=== PATIENT | female | born 1965 | race Caucasian/White ===

== ENCOUNTER 2016-11-28 13:59 | Inpatient (IN) | payer MEDICARE, SELFPAY ==
[2016-11-26 19:14] LABS: ASCORBIC ACID (UR NOT ORDER) NEG (NEG); BILIRUBIN, URINE NEGATIVE (NEG); KETONE, URINE NEGATIVE (NEG)
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
[~2016-11-28 13:59] MED LIST: ACET500CAP PO; ALEVE220 MG PO; CAT1 PO; CEFADROXIL1 GM PO; CEFT5 PO; CENTRUM TAB1 TAB PO; CIP5 PO; EPITOL200 MG PO; FLEX PO; GLUCPH PO; LEVAQUIN750 MG PO; MACROBID PO; MULTIVITAMI1 PO; NORV5 PO; PCET PO; PERCOCET1 TA4 PO; RESTORIL30 MG PO; SANTYL250 MG/GM TOP; SEPTRA DS1 TAB PO; TEG200 PO; ZANAFLEX2 MG PO; ZINC PO; [UNRECOGNIZED DRUG - OTHER] PO
[2016-11-28 18:09] LABS: BASOPHILS 0.2 %; BASOPHILS ABSOLUTE 0.02 10/3/uL (0.0-0.16); EOSINOPHILS 0.8 %; HEMATOCRIT 23.4 % (36.0-48.0); IMMATURE GRANULOCYTES 0.3 %; IMMATURE GRANULOCYTES ABSOLUTE 0.04 10/3/uL (0.0-0.11); LYMPHOCYTES 23.9 %; LYMPHOCYTES ABSOLUTE 2.98 10/3/uL (0.67-4.30); MEAN CORPUS HGB CONC 29.5 g/dL (32.0-36.0); MEAN CORPUSCULAR HEMOGLOB 22.3 pg (26.0-34.0); MEAN CORPUSCULAR VOLUME 75.5 fL (80-100); MEAN PLATELET VOLUME 9.1 fL (9.2-13.0); MONOCYTES ABSOLUTE 1.12 10/3/uL (0.21-1.20); NEUTROPHILS 65.8 %; NEUTROPHILS ABSOLUTE 8.21 10/3/uL (2.02-8.40); NUCLEATED RED BLOOD CELLS 0.1 /100WBC (0-0); RBC DISTRIBUTION WIDTH 20.3 % (12.0-16.0); WHITE BLOOD CELLS 12.5 10/3/uL (4.5-10.5)
[2016-11-28 18:10] LABS: A/G RATIO 0.2 (0.7-1.9); ALBUMIN 1.5 G/DL (3.5-5.0); BUN (BLOOD UREA NITROGEN) 7 MG/DL (6-23); CALCIUM, SERUM 8.3 MG/DL (8.5-10.4); CHLORIDE, SERUM 99 MMOL/L (96-112); CO2 (CARBON DIOXIDE) 29 MMOL/L (24-34); GFR AFRICAN AMERICAN 122 ML/MIN (>=60); GFR NON AFRICAN AMERICAN 106 ML/MIN (>=60); GLOBULIN 6.8 G/DL (2.5-4.1); POTASSIUM, SERUM 3.7 MMOL/L (3.5-5.3); SGOT(AST) 12 U/L (5-40); SGPT(ALT) 10 U/L (5-65); SODIUM, SERUM 137 MMOL/L (135-148); TOTAL BILIRUBIN 0.4 MG/DL (0-1.2); TOTAL PROTEIN 8.3 G/DL (6.0-8.5)
[2016-11-28 18:11] LABS: ALKALINE PHOSPHATASE 154 U/L (45-117); GLUCOSE, SERUM 102 MG/DL (60-99); HEMOGLOBIN 6.9 g/dL (12.0-16.0); PLATELET COUNT 857 10/3/uL (150-400)
[2016-11-28 18:13] LABS: MANUAL DIFF NO %
[2016-11-28 18:29] LABS: PREALBUMIN 6.2 MG/DL (17.0-43.0)
[2016-11-29 06:59] LABS: HEMATOCRIT 31.2 % (36.0-48.0); HEMOGLOBIN 9.8 g/dL (12.0-16.0)
[2016-11-29 17:45] LABS: ASCORBIC ACID (UR NOT ORDER) NEG (NEG); BILIRUBIN, URINE NEGATIVE (NEG); KETONE, URINE NEGATIVE (NEG); LEUKOCYTE ESTERASE(NOT OR LARGE (NEG); WBC (NOT ORDERED) (RFLEX) 60 (0-5)
[2016-11-30 03:50] LABS: BASOPHILS 0.1 %; BASOPHILS ABSOLUTE 0.01 10/3/uL (0.0-0.16); EOSINOPHILS 0.9 %; EOSINOPHILS ABSOLUTE 0.12 10/3/uL (0.0-0.53); HEMOGLOBIN 8.7 g/dL (12.0-16.0); IMMATURE GRANULOCYTES 0.2 %; IMMATURE GRANULOCYTES ABSOLUTE 0.02 10/3/uL (0.0-0.11); LYMPHOCYTES 37.2 %; LYMPHOCYTES ABSOLUTE 4.79 10/3/uL (0.67-4.30); MONOCYTES 8.1 %; MONOCYTES ABSOLUTE 1.04 10/3/uL (0.21-1.20); NEUTROPHILS 53.5 %; NEUTROPHILS ABSOLUTE 6.89 10/3/uL (2.02-8.40); RED CELL COUNT 3.52 10/6/uL (4.0-5.6); WHITE BLOOD CELLS 12.9 10/3/uL (4.5-10.5)
[2016-11-30 03:55] LABS: BUN (BLOOD UREA NITROGEN) 9 MG/DL (6-23); CALCIUM, SERUM 8.4 MG/DL (8.5-10.4); CHLORIDE, SERUM 100 MMOL/L (96-112); CO2 (CARBON DIOXIDE) 30 MMOL/L (24-34); CREATININE 0.76 MG/DL (0.55-1.02); GFR AFRICAN AMERICAN 105 ML/MIN (>=60); GFR NON AFRICAN AMERICAN 91 ML/MIN (>=60); GLUCOSE, SERUM 95 MG/DL (60-99); POTASSIUM, SERUM 3.8 MMOL/L (3.5-5.3); SODIUM, SERUM 138 MMOL/L (135-148)
[2016-11-30 04:04] LABS: HEMATOCRIT 27.4 % (36.0-48.0); MANUAL DIFF NO %; MEAN CORPUS HGB CONC 31.8 g/dL (32.0-36.0); MEAN CORPUSCULAR HEMOGLOB 24.7 pg (26.0-34.0); MEAN CORPUSCULAR VOLUME 77.8 fL (80-100); PLATELET COUNT 777 10/3/uL (150-400)
[2016-11-30 17:58] LABS: WBC (NOT ORDERED) (RFLEX) 0 (0-5)
[2016-11-30 18:16] LABS: ASCORBIC ACID (UR NOT ORDER) NEG (NEG); BILIRUBIN, URINE NEGATIVE (NEG); KETONE, URINE NEGATIVE (NEG); LEUKOCYTE ESTERASE(NOT OR NEG (NEG)
[2016-12-01 05:18] LABS: BASOPHILS 0.1 %; BASOPHILS ABSOLUTE 0.01 10/3/uL (0.0-0.16); EOSINOPHILS 1.6 %; EOSINOPHILS ABSOLUTE 0.19 10/3/uL (0.0-0.53); HEMATOCRIT 27.4 % (36.0-48.0); HEMOGLOBIN 8.4 g/dL (12.0-16.0); IMMATURE GRANULOCYTES 0.3 %; IMMATURE GRANULOCYTES ABSOLUTE 0.03 10/3/uL (0.0-0.11); LYMPHOCYTES 31.4 %; LYMPHOCYTES ABSOLUTE 3.72 10/3/uL (0.67-4.30); MEAN CORPUS HGB CONC 30.7 g/dL (32.0-36.0); MEAN CORPUSCULAR HEMOGLOB 24.1 pg (26.0-34.0); MEAN CORPUSCULAR VOLUME 78.7 fL (80-100); MEAN PLATELET VOLUME 8.9 fL (9.2-13.0); MONOCYTES 8.3 %; MONOCYTES ABSOLUTE 0.98 10/3/uL (0.21-1.20); NEUTROPHILS 58.3 %; NEUTROPHILS ABSOLUTE 6.91 10/3/uL (2.02-8.40); RBC DISTRIBUTION WIDTH 20.8 % (12.0-16.0); RED CELL COUNT 3.48 10/6/uL (4.0-5.6); WHITE BLOOD CELLS 11.8 10/3/uL (4.5-10.5)
[2016-12-01 05:19] LABS: MANUAL DIFF NO %; PLATELET COUNT 807 10/3/uL (150-400)
[2016-12-01 05:29] LABS: BUN (BLOOD UREA NITROGEN) 11 MG/DL (6-23); CALCIUM, SERUM 8.2 MG/DL (8.5-10.4); CHLORIDE, SERUM 102 MMOL/L (96-112); CO2 (CARBON DIOXIDE) 26 MMOL/L (24-34); CREATININE 0.62 MG/DL (0.55-1.02); GFR AFRICAN AMERICAN 121 ML/MIN (>=60); GFR NON AFRICAN AMERICAN 104 ML/MIN (>=60); GLUCOSE, SERUM 102 MG/DL (60-99); POTASSIUM, SERUM 3.9 MMOL/L (3.5-5.3); SODIUM, SERUM 136 MMOL/L (135-148)
[2016-12-01 05:44] LABS: ANISOCYTOSIS 1+ (5-10/OIF) (0-5/OIF)
[2016-12-01 05:45] LABS: HYPOCHROMIA 1+ (3-10/OIF) (0-2/OIF); POIKILOCYTOSIS 1+ (5-10/OIF) (0-5/OIF); POLYCHROMASIA 1+ (2-5/OIF) (0-1/OIF); TARGET CELLS FEW (3-10/OIF) (0-1/OIF)
[2016-12-02 05:45] LABS: HEMATOCRIT 27.6 % (36.0-48.0); HEMOGLOBIN 8.3 g/dL (12.0-16.0); MEAN CORPUS HGB CONC 30.1 g/dL (32.0-36.0); MEAN CORPUSCULAR HEMOGLOB 24.3 pg (26.0-34.0); MEAN CORPUSCULAR VOLUME 80.7 fL (80-100); MEAN PLATELET VOLUME 9.2 fL (9.2-13.0); RBC DISTRIBUTION WIDTH 21.5 % (12.0-16.0); RED CELL COUNT 3.42 10/6/uL (4.0-5.6); WHITE BLOOD CELLS 10.9 10/3/uL (4.5-10.5)
[2016-12-02 05:48] LABS: MANUAL DIFF YES %; PLATELET COUNT 766 10/3/uL (150-400)
[2016-12-02 05:57] LABS: A/G RATIO 0.2 (0.7-1.9); ALBUMIN 1.2 G/DL (3.5-5.0); ALKALINE PHOSPHATASE 113 U/L (45-117); BUN (BLOOD UREA NITROGEN) 11 MG/DL (6-23); CALCIUM, SERUM 8.3 MG/DL (8.5-10.4); CHLORIDE, SERUM 104 MMOL/L (96-112); CO2 (CARBON DIOXIDE) 26 MMOL/L (24-34); CREATININE 0.61 MG/DL (0.55-1.02); GFR AFRICAN AMERICAN 122 ML/MIN (>=60); GFR NON AFRICAN AMERICAN 105 ML/MIN (>=60); GLOBULIN 6.2 G/DL (2.5-4.1); GLUCOSE, SERUM 102 MG/DL (60-99); POTASSIUM, SERUM 4.3 MMOL/L (3.5-5.3); SGOT(AST) 11 U/L (5-40); SGPT(ALT) 10 U/L (5-65); SODIUM, SERUM 138 MMOL/L (135-148); TOTAL BILIRUBIN < 0.1 MG/DL (0-1.2); TOTAL PROTEIN 7.4 G/DL (6.0-8.5)
[2016-12-02 06:00] LABS: ANISOCYTOSIS 1+ (5-10/OIF) (0-5/OIF); EOSINOPHILS 1 %; EOSINOPHILS ABSOLUTE (CALC) 0.11 10/3/uL (0.0-0.53); LYMPHOCYTES 27 %; LYMPHOCYTES ABSOLUTE (CALC) 2.94 10/3/uL (0.67-4.30); MONOCYTES 3 %; MONOCYTES ABSOLUTE (CALC) 0.33 10/3/uL (0.21-1.20); NEUTROPHILS ABSOLUTE (CALC) 7.52 10/3/uL (2.02-8.40); SEGMENTED NEUTROPHIL (0) 69 %; TOTAL NUCLEATED CELLS 100
[2016-12-02 06:01] LABS: POIKILOCYTOSIS 1+ (5-10/OIF) (0-5/OIF); POLYCHROMASIA 1+ (2-5/OIF) (0-1/OIF); TARGET CELLS FEW (3-10/OIF) (0-1/OIF)
[2016-12-03 08:02] LABS: BASOPHILS 0.1 %; BASOPHILS ABSOLUTE 0.01 10/3/uL (0.0-0.16); EOSINOPHILS 2.4 %; EOSINOPHILS ABSOLUTE 0.25 10/3/uL (0.0-0.53); HEMATOCRIT 27.2 % (36.0-48.0); HEMOGLOBIN 8.3 g/dL (12.0-16.0); IMMATURE GRANULOCYTES 0.4 %; IMMATURE GRANULOCYTES ABSOLUTE 0.04 10/3/uL (0.0-0.11); LYMPHOCYTES 27.7 %; LYMPHOCYTES ABSOLUTE 2.87 10/3/uL (0.67-4.30); MEAN CORPUS HGB CONC 30.5 g/dL (32.0-36.0); MEAN CORPUSCULAR HEMOGLOB 24.7 pg (26.0-34.0); MEAN PLATELET VOLUME 8.6 fL (9.2-13.0); MONOCYTES 8.5 %; MONOCYTES ABSOLUTE 0.88 10/3/uL (0.21-1.20); NEUTROPHILS 60.9 %; NEUTROPHILS ABSOLUTE 6.31 10/3/uL (2.02-8.40); RED CELL COUNT 3.36 10/6/uL (4.0-5.6); WHITE BLOOD CELLS 10.4 10/3/uL (4.5-10.5)
[2016-12-03 08:10] LABS: MANUAL DIFF NO %; PLATELET COUNT 724 10/3/uL (150-400)
[2016-12-03 08:21] LABS: BUN (BLOOD UREA NITROGEN) 13 MG/DL (6-23); CALCIUM, SERUM 8.4 MG/DL (8.5-10.4); CHLORIDE, SERUM 107 MMOL/L (96-112); CO2 (CARBON DIOXIDE) 25 MMOL/L (24-34); GFR AFRICAN AMERICAN 140 ML/MIN (>=60); GFR NON AFRICAN AMERICAN 121 ML/MIN (>=60); GLUCOSE, SERUM 102 MG/DL (60-99); POTASSIUM, SERUM 3.7 MMOL/L (3.5-5.3); SODIUM, SERUM 141 MMOL/L (135-148)
[2016-12-04 09:33] LABS: BASOPHILS 0.2 %; BASOPHILS ABSOLUTE 0.02 10/3/uL (0.0-0.16); EOSINOPHILS 0.4 %; EOSINOPHILS ABSOLUTE 0.05 10/3/uL (0.0-0.53); HEMOGLOBIN 7.2 g/dL (12.0-16.0); IMMATURE GRANULOCYTES 0.4 %; IMMATURE GRANULOCYTES ABSOLUTE 0.05 10/3/uL (0.0-0.11); LYMPHOCYTES 23.2 %; LYMPHOCYTES ABSOLUTE 2.83 10/3/uL (0.67-4.30); MEAN CORPUS HGB CONC 30.9 g/dL (32.0-36.0); MEAN CORPUSCULAR HEMOGLOB 24.4 pg (26.0-34.0); MEAN PLATELET VOLUME 9.1 fL (9.2-13.0); MONOCYTES 7.5 %; MONOCYTES ABSOLUTE 0.92 10/3/uL (0.21-1.20); NEUTROPHILS 68.3 %; NEUTROPHILS ABSOLUTE 8.34 10/3/uL (2.02-8.40); RBC DISTRIBUTION WIDTH 22.3 % (12.0-16.0); RED CELL COUNT 2.95 10/6/uL (4.0-5.6); WHITE BLOOD CELLS 12.2 10/3/uL (4.5-10.5)
[2016-12-04 09:37] LABS: HEMATOCRIT 23.3 % (36.0-48.0); MANUAL DIFF NO %; PLATELET COUNT 743 10/3/uL (150-400)
[2016-12-04 09:54] LABS: A/G RATIO 0.2 (0.7-1.9); ALBUMIN 1.3 G/DL (3.5-5.0); ALKALINE PHOSPHATASE 109 U/L (45-117); BUN (BLOOD UREA NITROGEN) 7 MG/DL (6-23); CALCIUM, SERUM 7.9 MG/DL (8.5-10.4); CHLORIDE, SERUM 101 MMOL/L (96-112); CO2 (CARBON DIOXIDE) 26 MMOL/L (24-34); CREATININE 0.63 MG/DL (0.55-1.02); GFR AFRICAN AMERICAN 120 ML/MIN (>=60); GFR NON AFRICAN AMERICAN 104 ML/MIN (>=60); GLUCOSE, SERUM 153 MG/DL (60-99); POTASSIUM, SERUM 4.1 MMOL/L (3.5-5.3); SGOT(AST) 33 U/L (5-40); SGPT(ALT) 23 U/L (5-65); SODIUM, SERUM 135 MMOL/L (135-148); TOTAL BILIRUBIN 0.3 MG/DL (0-1.2); TOTAL PROTEIN 7.3 G/DL (6.0-8.5)
[2016-12-04 09:56] LABS: POIKILOCYTOSIS 1+ (5-10/OIF) (0-5/OIF); POLYCHROMASIA 1+ (2-5/OIF) (0-1/OIF); TARGET CELLS OCC (1-2/OIF) (0-1/OIF)
[2016-12-05 06:07] LABS: BASOPHILS 0.1 %; BASOPHILS ABSOLUTE 0.01 10/3/uL (0.0-0.16); EOSINOPHILS 2.1 %; EOSINOPHILS ABSOLUTE 0.21 10/3/uL (0.0-0.53); HEMOGLOBIN 7.3 g/dL (12.0-16.0); IMMATURE GRANULOCYTES 0.3 %; IMMATURE GRANULOCYTES ABSOLUTE 0.03 10/3/uL (0.0-0.11); LYMPHOCYTES 23.7 %; LYMPHOCYTES ABSOLUTE 2.36 10/3/uL (0.67-4.30); MANUAL DIFF NO %; MEAN CORPUS HGB CONC 30.4 g/dL (32.0-36.0); MEAN CORPUSCULAR HEMOGLOB 24.7 pg (26.0-34.0); MEAN CORPUSCULAR VOLUME 81.4 fL (80-100); MEAN PLATELET VOLUME 8.9 fL (9.2-13.0); MONOCYTES 10.4 %; MONOCYTES ABSOLUTE 1.03 10/3/uL (0.21-1.20); NEUTROPHILS 63.4 %; NEUTROPHILS ABSOLUTE 6.31 10/3/uL (2.02-8.40); PLATELET COUNT 710 10/3/uL (150-400); RBC DISTRIBUTION WIDTH 22.3 % (12.0-16.0); RED CELL COUNT 2.95 10/6/uL (4.0-5.6)
[2016-12-05 06:13] LABS: BUN (BLOOD UREA NITROGEN) 5 MG/DL (6-23); CALCIUM, SERUM 7.8 MG/DL (8.5-10.4); CHLORIDE, SERUM 104 MMOL/L (96-112); CO2 (CARBON DIOXIDE) 27 MMOL/L (24-34); GFR AFRICAN AMERICAN 130 ML/MIN (>=60); GFR NON AFRICAN AMERICAN 112 ML/MIN (>=60); POTASSIUM, SERUM 4.1 MMOL/L (3.5-5.3); SODIUM, SERUM 138 MMOL/L (135-148)
[2016-12-05 06:14] LABS: GLUCOSE, SERUM 86 MG/DL (60-99)
[2016-12-05 06:32] LABS: PLATELET ESTIMATE INC (ADEQUATE)
[2016-12-05 06:34] LABS: HYPOCHROMIA 1+ (3-10/OIF) (0-2/OIF); SPHEROCYTES FEW (3-10/OIF)
[2016-12-08 07:19] LABS: BASOPHILS 0.1 %; BASOPHILS ABSOLUTE 0.01 10/3/uL (0.0-0.16); EOSINOPHILS ABSOLUTE 0.34 10/3/uL (0.0-0.53); HEMOGLOBIN 7.5 g/dL (12.0-16.0); IMMATURE GRANULOCYTES 0.4 %; IMMATURE GRANULOCYTES ABSOLUTE 0.05 10/3/uL (0.0-0.11); LYMPHOCYTES 27.2 %; LYMPHOCYTES ABSOLUTE 3.06 10/3/uL (0.67-4.30); MEAN CORPUSCULAR HEMOGLOB 24.9 pg (26.0-34.0); MEAN CORPUSCULAR VOLUME 83.1 fL (80-100); MEAN PLATELET VOLUME 8.9 fL (9.2-13.0); MONOCYTES 7.2 %; MONOCYTES ABSOLUTE 0.81 10/3/uL (0.21-1.20); NEUTROPHILS 62.1 %; NEUTROPHILS ABSOLUTE 6.96 10/3/uL (2.02-8.40); RED CELL COUNT 3.01 10/6/uL (4.0-5.6); WHITE BLOOD CELLS 11.2 10/3/uL (4.5-10.5)
[2016-12-08 07:21] LABS: MANUAL DIFF NO %; PLATELET COUNT 847 10/3/uL (150-400)
[2016-12-08 07:28] LABS: BUN (BLOOD UREA NITROGEN) 5 MG/DL (6-23); CALCIUM, SERUM 8.2 MG/DL (8.5-10.4); CHLORIDE, SERUM 104 MMOL/L (96-112); CO2 (CARBON DIOXIDE) 29 MMOL/L (24-34); CREATININE 0.51 MG/DL (0.55-1.02); GFR AFRICAN AMERICAN 129 ML/MIN (>=60); GFR NON AFRICAN AMERICAN 111 ML/MIN (>=60); GLUCOSE, SERUM 88 MG/DL (60-99); POTASSIUM, SERUM 3.9 MMOL/L (3.5-5.3); SODIUM, SERUM 141 MMOL/L (135-148)
[2016-12-08 07:53] LABS: GIANT PLATELET OCC
[2016-12-08 07:54] LABS: OVALOCYTES 1+ (3-10/OIF) (0-2/OIF); TARGET CELLS OCC (1-2/OIF) (0-1/OIF)
[2016-12-09 06:23] LABS: BASOPHILS 0.2 %; BASOPHILS ABSOLUTE 0.02 10/3/uL (0.0-0.16); EOSINOPHILS 2.8 %; EOSINOPHILS ABSOLUTE 0.31 10/3/uL (0.0-0.53); HEMATOCRIT 23.7 % (36.0-48.0); IMMATURE GRANULOCYTES 0.5 %; IMMATURE GRANULOCYTES ABSOLUTE 0.05 10/3/uL (0.0-0.11); LYMPHOCYTES 35.3 %; LYMPHOCYTES ABSOLUTE 3.91 10/3/uL (0.67-4.30); MANUAL DIFF NO %; MEAN CORPUS HGB CONC 29.5 g/dL (32.0-36.0); MEAN CORPUSCULAR HEMOGLOB 24.6 pg (26.0-34.0); MEAN CORPUSCULAR VOLUME 83.5 fL (80-100); MONOCYTES 7.4 %; MONOCYTES ABSOLUTE 0.82 10/3/uL (0.21-1.20); NEUTROPHILS 53.8 %; NEUTROPHILS ABSOLUTE 5.98 10/3/uL (2.02-8.40); PLATELET COUNT 813 10/3/uL (150-400); RBC DISTRIBUTION WIDTH 22.5 % (12.0-16.0); RED CELL COUNT 2.84 10/6/uL (4.0-5.6); WHITE BLOOD CELLS 11.1 10/3/uL (4.5-10.5)
[2016-12-09 06:33] LABS: BUN (BLOOD UREA NITROGEN) 7 MG/DL (6-23); CALCIUM, SERUM 8.2 MG/DL (8.5-10.4); CHLORIDE, SERUM 104 MMOL/L (96-112); CO2 (CARBON DIOXIDE) 29 MMOL/L (24-34); CREATININE 0.51 MG/DL (0.55-1.02); GFR AFRICAN AMERICAN 129 ML/MIN (>=60); GFR NON AFRICAN AMERICAN 111 ML/MIN (>=60); GLUCOSE, SERUM 103 MG/DL (60-99); POTASSIUM, SERUM 3.7 MMOL/L (3.5-5.3); SODIUM, SERUM 143 MMOL/L (135-148)
[2016-12-09 06:50] LABS: HYPOCHROMIA 1+ (3-10/OIF) (0-2/OIF)
[2016-12-09 06:51] LABS: POLYCHROMASIA 1+ (2-5/OIF) (0-1/OIF)
[2016-12-09 06:52] LABS: SPHEROCYTES FEW (3-10/OIF)
[2016-12-10 06:45] LABS: MEAN CORPUS HGB CONC 28.6 g/dL (32.0-36.0); MEAN CORPUSCULAR HEMOGLOB 24.9 pg (26.0-34.0); MEAN PLATELET VOLUME 8.9 fL (9.2-13.0); RBC DISTRIBUTION WIDTH 23.6 % (12.0-16.0); RED CELL COUNT 3.21 10/6/uL (4.0-5.6); WHITE BLOOD CELLS 12.4 10/3/uL (4.5-10.5)
[2016-12-10 06:47] LABS: MANUAL DIFF YES %; MEAN CORPUSCULAR VOLUME 87.2 fL (80-100); PLATELET COUNT 826 10/3/uL (150-400)
[2016-12-10 07:22] LABS: BAND NEUTROPHILS 3 %; EOSINOPHILS 2 %; EOSINOPHILS ABSOLUTE (CALC) 0.25 10/3/uL (0.0-0.53); LYMPHOCYTES 30 %; LYMPHOCYTES ABSOLUTE (CALC) 3.72 10/3/uL (0.67-4.30); MONOCYTES 3 %; MONOCYTES ABSOLUTE (CALC) 0.37 10/3/uL (0.21-1.20); NEUTROPHILS ABSOLUTE (CALC) 8.06 10/3/uL (2.02-8.40); SEGMENTED NEUTROPHIL (0) 62 %; TOTAL NUCLEATED CELLS 100
[2016-12-10 07:23] LABS: POLYCHROMASIA 1+ (2-5/OIF) (0-1/OIF)
[2016-12-10 07:34] LABS: BUN (BLOOD UREA NITROGEN) 7 MG/DL (6-23); CALCIUM, SERUM 8.2 MG/DL (8.5-10.4); CHLORIDE, SERUM 108 MMOL/L (96-112); CO2 (CARBON DIOXIDE) 28 MMOL/L (24-34); CREATININE 0.53 MG/DL (0.55-1.02); GFR AFRICAN AMERICAN 127 ML/MIN (>=60); GFR NON AFRICAN AMERICAN 110 ML/MIN (>=60); GLUCOSE, SERUM 95 MG/DL (60-99); POTASSIUM, SERUM 3.7 MMOL/L (3.5-5.3); SODIUM, SERUM 143 MMOL/L (135-148)
[2017-03-30] MEDS ORDERED: TEG200 PO (22:54)
[2017-03-30] MEDS ORDERED: GLUCPH PO (22:55)
[2017-03-30] MEDS ORDERED: PR25 PO (22:55)
[2017-03-30] MEDS ORDERED: PERCOCET 7.5/321 TAB PO (22:55)
[2017-03-30] MEDS ORDERED: REST15 PO (22:55)
[2017-03-30] MEDS ORDERED: T PO (22:56)
== END 2016-12-10 18:07 | disposition left against medical advice (07) | DRG 622 ==
LOC: CDU2 13:59 → 5SO 12-01 16:59
PROVIDERS: Family Medicine; Internal Medicine; Specialist
PROC: 30233N1 Transfusion of Nonautologous Red Blood Cells into Peripheral Vein, Percutaneous Approach (ICD-10-PCS; 2016-11-28)
PROC: 0DBN0ZZ Excision of Sigmoid Colon, Open Approach (ICD-10-PCS; 2016-12-03)
PROC: 0D1N0Z4 Bypass Sigmoid Colon to Cutaneous, Open Approach (ICD-10-PCS; 2016-12-03)
PROC: 0QB20ZZ Excision of Right Pelvic Bone, Open Approach (ICD-10-PCS; principal; 2016-12-03 15:30)
PROC: 0JB70ZZ Excision of Back Subcutaneous Tissue and Fascia, Open Approach (ICD-10-PCS; 2016-12-03 15:30)
PROC: 0JBC0ZZ Excision of Pelvic Region Subcutaneous Tissue and Fascia, Open Approach (ICD-10-PCS; 2016-12-03 15:30)
PROC: 3E0H76Z Introduction of Nutritional Substance into Lower GI, Via Natural or Artificial Opening (ICD-10-PCS; 2016-12-05)
PROC: 02HV33Z Insertion of Infusion Device into Superior Vena Cava, Percutaneous Approach (ICD-10-PCS; 2016-12-06)
PROC: 4A02X4A Measurement of Cardiac Electrical Activity, Guidance, External Approach (ICD-10-PCS; 2016-12-06)
DX: E11.69 Type 2 diabetes mellitus with other specified complication (principal); L89.214 Pressure ulcer of right hip, stage 4; L89.624 Pressure ulcer of left heel, stage 4; E43 Unspecified severe protein-calorie malnutrition; G82.20 Paraplegia, unspecified; L89.224 Pressure ulcer of left hip, stage 4; M86.8X8 Other osteomyelitis, other site; I10 Essential (primary) hypertension; D47.3 Essential (hemorrhagic) thrombocythemia; L89.512 Pressure ulcer of right ankle, stage 2; D63.8 Anemia in other chronic diseases classified elsewhere; G40.909 Epilepsy, unspecified, not intractable, without status epilepticus; Z68.22 Body mass index [BMI] 22.0-22.9, adult; R53.1 Weakness; Z87.440 Personal history of urinary (tract) infections; Z79.84 Long term (current) use of oral hypoglycemic drugs; Z79.899 Other long term (current) drug therapy; Z83.3 Family history of diabetes mellitus; Z82.49 Family history of ischemic heart disease and other diseases of the circulatory system; Z79.01 Long term (current) use of anticoagulants
CPT/HCPCS: 36415; 36569; 72197; 74178; 80048; 80053; 81001; 82962; 83036; 83735; 84134; 85014; 85018; 85025; 85610; 85652; 86850; 86900; 86901; 86920; 87015; 87040; 87070; 87075; 87077; 87086; 87102; 87116; 87186; 87205; 88304; 88307; 93005; A9270-GY; A9577; C1751; G0463; J0295; J0690; J1940; J2250; J2370; J2405; J2550; J2710; J3010; J3370; P9016; Q9967

== ENCOUNTER 2017-02-28 12:24 | Inpatient (IN) | payer MEDICARE, OTHER ==
[2017-02-26 18:13] LABS: HEMATOCRIT 31.1 % (36.0-48.0); HEMOGLOBIN 9.8 g/dL (12.0-16.0); MEAN CORPUS HGB CONC 31.5 g/dL (32.0-36.0); MEAN CORPUSCULAR HEMOGLOB 26.3 pg (26.0-34.0); MEAN CORPUSCULAR VOLUME 83.4 fL (80-100); MEAN PLATELET VOLUME 10.1 fL (9.2-13.0); PLATELET COUNT 1158 10/3/uL (150-400); RBC DISTRIBUTION WIDTH 18.8 % (12.0-16.0); RED CELL COUNT 3.73 10/6/uL (4.0-5.6); WHITE BLOOD CELLS 18.4 10/3/uL (4.5-10.5)
[2017-02-26 18:14] LABS: MANUAL DIFF YES %
[2017-02-26 18:17] LABS: A/G RATIO 0.2 (0.7-1.9); ALBUMIN 1.5 G/DL (3.5-5.0); BUN (BLOOD UREA NITROGEN) 9 MG/DL (6-23); CALCIUM, SERUM 8.6 MG/DL (8.5-10.4); CHLORIDE, SERUM 97 MMOL/L (96-112); CO2 (CARBON DIOXIDE) 28 MMOL/L (24-34); GFR AFRICAN AMERICAN 86 ML/MIN (>=60); GFR NON AFRICAN AMERICAN 74 ML/MIN (>=60); GLOBULIN 7.5 G/DL (2.5-4.1); GLUCOSE, SERUM 178 MG/DL (60-99); POTASSIUM, SERUM 3.6 MMOL/L (3.5-5.3); SGOT(AST) 15 U/L (5-40); SGPT(ALT) 16 U/L (5-65); SODIUM, SERUM 136 MMOL/L (135-148); TOTAL BILIRUBIN 0.2 MG/DL (0-1.2)
[2017-02-26 18:21] LABS: ALKALINE PHOSPHATASE 184 U/L (45-117)
[2017-02-26 18:41] LABS: BAND NEUTROPHILS 7 %; EOSINOPHILS 1 %; EOSINOPHILS ABSOLUTE (CALC) 0.18 10/3/uL (0.0-0.53); LYMPHOCYTES 23 %; LYMPHOCYTES ABSOLUTE (CALC) 4.23 10/3/uL (0.67-4.30); MONOCYTES 5 %; MONOCYTES ABSOLUTE (CALC) 0.92 10/3/uL (0.21-1.20); NEUTROPHILS ABSOLUTE (CALC) 13.06 10/3/uL (2.02-8.40); RBC MORPHOLOGY NORM (NORMAL); SEGMENTED NEUTROPHIL (0) 64 %; TOTAL NUCLEATED CELLS 100
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
--- NOTE | ~2017-02-28 | CN ---
Consultation Report [facility] [address] [place]. [address] NAME: MARGIE SALAS : 65 STATUS : ADM IN [facility]#: [id number] AGE: 51 ADM/REG DATE : 02/28/17 MR#: [id number] REPORT SERV DATE: 03/02/17 DICTATED BY: MARA DIAZ DATE: 03/02/17 REPORT STATUS : Draft TRANSCRIBED BY: MODL DATE: 03/02/17 INFECTIOUS DISEASE CONSULTATION DATE OF CONSULTATION: 03/02/2017 REASON FOR CONSULTATION: Sepsis. HISTORY OF PRESENT ILLNESS: This is a 51-year-old female, known to me from consultation back in late November of this year, who has a history of paraplegia and splenectomy and has developed chronic decubitus ulcers. In late November, she underwent debridement by Dr. Verma with pathology showing osteomyelitis of the ischium, and cultures grew abundant group B strep. She received a prolonged course of IV antibiotics, which she finished at [facility] and was discharged home around 01/15. She has continued to follow up with Dr. Verma in the [facility]. However, earlier this week, she developed fevers, weakness, anorexia and apparently a worsening condition of her wounds, and she was admitted to the hospital on 02/28. She had a fever, up to 100.8, and leukocytosis and tachycardia. Blood cultures, one set of two and wound cultures have grown group A strep. She initially was treated with Zosyn, this was changed to Unasyn last night. Overall, she feels better. With regard to her nutrition, she says she has been eating somewhat poorly due to recent anorexia. She had been on tube feeds before, but not anymore, but does take Ensure sometimes. PAST MEDICAL HISTORY: Otherwise, unchanged and unremarkable. ALLERGIES: NO KNOWN DRUG ALLERGIES. PRESENT MEDICATIONS: In addition to the antibiotics include Tegretol, Lovenox, insulin, Glucophage, multivitamins. SOCIAL HISTORY: Unchanged. FAMILY HISTORY: Unchanged. REVIEW OF SYSTEMS: No nausea or vomiting. No chest pain or shortness of breath. PHYSICAL EXAMINATION: VITAL SIGNS: The patient weighs 74 kg. She is afebrile. Blood pressure 96/52, pulse at present is 72, respiratory rate 16. GENERAL: She is alert, in no acute distress. HEAD AND NECK: Show a clear oral cavity without thrush. LUNGS: Clear to auscultation anteriorly. CARDIAC: Regular rate and rhythm without murmur, gallop, or rub. ABDOMEN: Shows a feeding tube in place. Nondistended, soft, and nontender. Bowel sounds Consultation Report [facility] [address] [place]. [address] NAME: MARGIE SAALS : 65 STATUS : ADM IN PAT#: [id number] AGE: 51 ADM/REG DATE : 02/28/17 MR#: [id number] REPORT SERV DATE: 03/02/17 DICTATED BY: MARA DIAZ DATE: 03/02/17 REPORT STATUS : Draft TRANSCRIBED BY: JOVANNI DATE: 03/02/17 are decreased. The patient has a colostomy, which appears to be functioning normally. EXTREMITIES: Without rash or edema. Wounds were not examined today. LABORATORY STUDIES: White blood cell count today 11.7, hemoglobin 7.1, platelets 881. Creatinine 0.48. Albumin is 1.3. Prealbumin is 4.6. MICROBIOLOGY STUDIES: As noted. IMAGING: Chest x-ray is negative. IMPRESSION: Group A strep sepsis secondary to decubitus wound infection in a patient with chronic paraplegia and severe malnourishment. PLAN: 1. We will discuss with Dr. Verma regarding the question of whether this is all secondary to just a wound infection alone or if there is concern for a deeper process such as an abscess or recurrent osteomyelitis. 2. We will change antibiotics to penicillin G. 3. The patient will need a minimum of two weeks of IV antibiotic therapy. Once she is ready for discharge from the hospital, we could do this with once daily ceftriaxone either at home or in the infusion center. SEVEN/JOVANNI Mara Diaz M.D. / [id number] CC: Hossein Carey M.D. John Gwin Jr., M.D.
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
[2017-02-28] MEDS ORDERED: ENDOCET1 TA1 PO (12:58)
[2017-02-28] MEDS ORDERED: CIP5 PO (12:58)
[2017-02-28] MEDS ORDERED: PR25 PO (12:59)
[2017-02-28] MEDS ORDERED: TEG200 PO (12:59)
[2017-02-28] MEDS ORDERED: ATV.5 PO (13:00)
[2017-02-28] MEDS ORDERED: REST15 PO (13:00)
[2017-02-28] MEDS ORDERED: GLUCPH PO (13:01)
[2017-02-28] MEDS ORDERED: SILVER SULFADIAZINE 1% TOP (13:02)
[2017-02-28] MEDS ORDERED: ACET500CAP PO (13:03)
[2017-02-28] MEDS ORDERED: GOODY'S EX-STR1 EAC1 PO (13:05)
[2017-02-28 19:28] LABS: ASCORBIC ACID (UR NOT ORDER) 40 (NEG); BILIRUBIN, URINE NEGATIVE (NEG); KETONE, URINE NEGATIVE (NEG); LEUKOCYTE ESTERASE(NOT OR TRACE (NEG); WBC (NOT ORDERED) (RFLEX) 3 (0-5)
[2017-02-28 19:35] LABS: BASOPHILS 0.1 %; BASOPHILS ABSOLUTE 0.02 10/3/uL (0.0-0.16); EOSINOPHILS 0.2 %; EOSINOPHILS ABSOLUTE 0.03 10/3/uL (0.0-0.53); IMMATURE GRANULOCYTES 0.3 %; IMMATURE GRANULOCYTES ABSOLUTE 0.05 10/3/uL (0.0-0.11); LYMPHOCYTES 17.9 %; LYMPHOCYTES ABSOLUTE 3.13 10/3/uL (0.67-4.30); MEAN CORPUS HGB CONC 31.7 g/dL (32.0-36.0); MEAN CORPUSCULAR HEMOGLOB 26.1 pg (26.0-34.0); MEAN CORPUSCULAR VOLUME 82.5 fL (80-100); MEAN PLATELET VOLUME 8.7 fL (9.2-13.0); MONOCYTES 8.5 %; MONOCYTES ABSOLUTE 1.49 10/3/uL (0.21-1.20); NEUTROPHILS ABSOLUTE 12.73 10/3/uL (2.02-8.40); RBC DISTRIBUTION WIDTH 18.5 % (12.0-16.0); WHITE BLOOD CELLS 17.5 10/3/uL (4.5-10.5)
[2017-02-28 19:42] LABS: HEMOGLOBIN 7.6 g/dL (12.0-16.0); PLATELET COUNT 914 10/3/uL (150-400); RED CELL COUNT 2.91 10/6/uL (4.0-5.6)
[2017-02-28 19:43] LABS: MANUAL DIFF NO %
[2017-02-28 19:56] LABS: A/G RATIO 0.2 (0.7-1.9); ALBUMIN 1.3 G/DL (3.5-5.0); ALKALINE PHOSPHATASE 152 U/L (45-117); BUN (BLOOD UREA NITROGEN) 8 MG/DL (6-23); CALCIUM, SERUM 7.5 MG/DL (8.5-10.4); CHLORIDE, SERUM 106 MMOL/L (96-112); CO2 (CARBON DIOXIDE) 27 MMOL/L (24-34); CREATININE 0.65 MG/DL (0.55-1.02); GFR AFRICAN AMERICAN 119 ML/MIN (>=60); GFR NON AFRICAN AMERICAN 103 ML/MIN (>=60); GLOBULIN 6.2 G/DL (2.5-4.1); GLUCOSE, SERUM 127 MG/DL (60-99); POTASSIUM, SERUM 3.2 MMOL/L (3.5-5.3); PREALBUMIN 4.6 MG/DL (17.0-43.0); SGOT(AST) 11 U/L (5-40); SGPT(ALT) 12 U/L (5-65); SODIUM, SERUM 136 MMOL/L (135-148); TOTAL BILIRUBIN 0.2 MG/DL (0-1.2); TOTAL PROTEIN 7.5 G/DL (6.0-8.5); ULTRASENSITIVE TSH 0.546 MCIU/ML (0.358-3.740)
[2017-02-28 20:03] LABS: BAND NEUTROPHILS 4 %; LYMPHOCYTES 11 %; LYMPHOCYTES ABSOLUTE (CALC) 1.93 10/3/uL (0.67-4.30); MONOCYTES 4 %; NEUTROPHILS ABSOLUTE (CALC) 14.88 10/3/uL (2.02-8.40); SEGMENTED NEUTROPHIL (0) 81 %; TOTAL NUCLEATED CELLS 100
[2017-02-28 20:04] LABS: ANISOCYTOSIS 1+ (5-10/OIF) (0-5/OIF)
[2017-02-28 20:05] LABS: HYPOCHROMIA 1+ (3-10/OIF) (0-2/OIF); MICROCYTES 1+ (5-10/OIF) (0-5/OIF); POLYCHROMASIA 2+ (5-10/OIF) (0-1/OIF)
[2017-02-28 20:40] LABS: INTERNATIONAL NORMAL RATI 1.6 UNITS (-); PROTIME (NOT ORD) 18.9 SEC (12.0-14.5)
[2017-02-28 20:41] LABS: PARTIAL THROMBO TIME 53.7 SEC (22.5-37.2)
[2017-03-01 07:13] LABS: BASOPHILS 0.2 %; BASOPHILS ABSOLUTE 0.03 10/3/uL (0.0-0.16); EOSINOPHILS 1.4 %; HEMATOCRIT 24.1 % (36.0-48.0); HEMOGLOBIN 7.5 g/dL (12.0-16.0); IMMATURE GRANULOCYTES 0.4 %; IMMATURE GRANULOCYTES ABSOLUTE 0.06 10/3/uL (0.0-0.11); LYMPHOCYTES 28.5 %; LYMPHOCYTES ABSOLUTE 4.15 10/3/uL (0.67-4.30); MEAN CORPUS HGB CONC 31.1 g/dL (32.0-36.0); MEAN CORPUSCULAR VOLUME 83.4 fL (80-100); MONOCYTES 10.4 %; MONOCYTES ABSOLUTE 1.52 10/3/uL (0.21-1.20); NEUTROPHILS 59.1 %; NEUTROPHILS ABSOLUTE 8.61 10/3/uL (2.02-8.40); RBC DISTRIBUTION WIDTH 18.5 % (12.0-16.0); RED CELL COUNT 2.89 10/6/uL (4.0-5.6); WHITE BLOOD CELLS 14.6 10/3/uL (4.5-10.5)
[2017-03-01 07:14] LABS: MANUAL DIFF NO %; PLATELET COUNT 926 10/3/uL (150-400)
[2017-03-01 07:28] LABS: PLATELET ESTIMATE INC (ADEQUATE)
[2017-03-01 07:33] LABS: BUN (BLOOD UREA NITROGEN) 8 MG/DL (6-23); CALCIUM, SERUM 8.2 MG/DL (8.5-10.4); CHLORIDE, SERUM 108 MMOL/L (96-112); CO2 (CARBON DIOXIDE) 27 MMOL/L (24-34); CREATININE 0.64 MG/DL (0.55-1.02); GFR AFRICAN AMERICAN 120 ML/MIN (>=60); GFR NON AFRICAN AMERICAN 103 ML/MIN (>=60); GLUCOSE, SERUM 86 MG/DL (60-99); POTASSIUM, SERUM 3.4 MMOL/L (3.5-5.3); SODIUM, SERUM 140 MMOL/L (135-148)
[2017-03-02 07:06] LABS: BASOPHILS 0.2 %; BASOPHILS ABSOLUTE 0.02 10/3/uL (0.0-0.16); EOSINOPHILS 2.7 %; EOSINOPHILS ABSOLUTE 0.32 10/3/uL (0.0-0.53); HEMATOCRIT 23.1 % (36.0-48.0); HEMOGLOBIN 7.1 g/dL (12.0-16.0); IMMATURE GRANULOCYTES 0.4 %; IMMATURE GRANULOCYTES ABSOLUTE 0.05 10/3/uL (0.0-0.11); LYMPHOCYTES 34.2 %; MEAN CORPUS HGB CONC 30.7 g/dL (32.0-36.0); MEAN CORPUSCULAR HEMOGLOB 25.8 pg (26.0-34.0); MEAN PLATELET VOLUME 8.9 fL (9.2-13.0); MONOCYTES 8.3 %; MONOCYTES ABSOLUTE 0.97 10/3/uL (0.21-1.20); NEUTROPHILS 54.2 %; NEUTROPHILS ABSOLUTE 6.35 10/3/uL (2.02-8.40); RBC DISTRIBUTION WIDTH 18.7 % (12.0-16.0); RED CELL COUNT 2.75 10/6/uL (4.0-5.6); WHITE BLOOD CELLS 11.7 10/3/uL (4.5-10.5)
[2017-03-02 07:10] LABS: MANUAL DIFF NO %; PLATELET COUNT 881 10/3/uL (150-400)
[2017-03-02 07:20] LABS: BUN (BLOOD UREA NITROGEN) 6 MG/DL (6-23); CALCIUM, SERUM 7.9 MG/DL (8.5-10.4); CHLORIDE, SERUM 107 MMOL/L (96-112); CO2 (CARBON DIOXIDE) 27 MMOL/L (24-34); CREATININE 0.48 MG/DL (0.55-1.02); GFR AFRICAN AMERICAN 132 ML/MIN (>=60); GFR NON AFRICAN AMERICAN 114 ML/MIN (>=60); GLUCOSE, SERUM 77 MG/DL (60-99); SODIUM, SERUM 141 MMOL/L (135-148)
[2017-03-02 07:25] LABS: POTASSIUM, SERUM 3.6 MMOL/L (3.5-5.3)
[2017-03-02 07:43] LABS: HYPOCHROMIA 1+ (3-10/OIF) (0-2/OIF)
[2017-03-03 08:44] LABS: BASOPHILS 0.2 %; BASOPHILS ABSOLUTE 0.02 10/3/uL (0.0-0.16); BUN (BLOOD UREA NITROGEN) 5 MG/DL (6-23); CALCIUM, SERUM 8.8 MG/DL (8.5-10.4); CHLORIDE, SERUM 107 MMOL/L (96-112); CO2 (CARBON DIOXIDE) 28 MMOL/L (24-34); CREATININE 0.59 MG/DL (0.55-1.02); EOSINOPHILS 3.1 %; EOSINOPHILS ABSOLUTE 0.31 10/3/uL (0.0-0.53); GFR AFRICAN AMERICAN 123 ML/MIN (>=60); GFR NON AFRICAN AMERICAN 106 ML/MIN (>=60); GLUCOSE, SERUM 82 MG/DL (60-99); HEMATOCRIT 28.1 % (36.0-48.0); HEMOGLOBIN 8.7 g/dL (12.0-16.0); IMMATURE GRANULOCYTES 0.6 %; IMMATURE GRANULOCYTES ABSOLUTE 0.06 10/3/uL (0.0-0.11); LYMPHOCYTES 43.2 %; LYMPHOCYTES ABSOLUTE 4.36 10/3/uL (0.67-4.30); MEAN CORPUSCULAR VOLUME 83.9 fL (80-100); MONOCYTES 7.2 %; MONOCYTES ABSOLUTE 0.73 10/3/uL (0.21-1.20); NEUTROPHILS 45.7 %; NEUTROPHILS ABSOLUTE 4.62 10/3/uL (2.02-8.40); PLATELET COUNT 1051 10/3/uL (150-400); POTASSIUM, SERUM 3.9 MMOL/L (3.5-5.3); RBC DISTRIBUTION WIDTH 18.3 % (12.0-16.0); RED CELL COUNT 3.35 10/6/uL (4.0-5.6); SODIUM, SERUM 140 MMOL/L (135-148); WHITE BLOOD CELLS 10.1 10/3/uL (4.5-10.5)
[2017-03-03 08:46] LABS: MANUAL DIFF NO %
[2017-03-03 09:43] LABS: ANISOCYTOSIS 1+ (5-10/OIF) (0-5/OIF); HYPOCHROMIA 1+ (3-10/OIF) (0-2/OIF)
[2017-03-30] MEDS ORDERED: TEG200 PO (22:54)
[2017-03-30] MEDS ORDERED: GLUCPH PO (22:55)
[2017-03-30] MEDS ORDERED: REST15 PO (22:55)
[2017-03-30] MEDS ORDERED: PERCOCET 7.5/321 TAB PO (22:55)
[2017-03-30] MEDS ORDERED: PR25 PO (22:55)
[2017-03-30] MEDS ORDERED: T PO (22:56)
== END 2017-03-05 16:10 | DRG 853 ==
LOC: 4SO 12:24
PROVIDERS: Family Medicine; Internal Medicine; Nurse Practitioner Family
DX: A40.0 Sepsis due to streptococcus, group A (principal); E43 Unspecified severe protein-calorie malnutrition; L89.154 Pressure ulcer of sacral region, stage 4; G82.20 Paraplegia, unspecified; L89.513 Pressure ulcer of right ankle, stage 3; L89.214 Pressure ulcer of right hip, stage 4; E11.9 Type 2 diabetes mellitus without complications; D47.3 Essential (hemorrhagic) thrombocythemia; L89.44 Pressure ulcer of contiguous site of back, buttock and hip, stage 4; L89.894 Pressure ulcer of other site, stage 4; L89.614 Pressure ulcer of right heel, stage 4; L89.624 Pressure ulcer of left heel, stage 4; D63.8 Anemia in other chronic diseases classified elsewhere; I10 Essential (primary) hypertension; G89.4 Chronic pain syndrome; T14.8 Other injury of unspecified body region; V89.2XXS Person injured in unspecified motor-vehicle accident, traffic, sequela; K59.00 Constipation, unspecified; Z79.84 Long term (current) use of oral hypoglycemic drugs; Z79.891 Long term (current) use of opiate analgesic; G40.909 Epilepsy, unspecified, not intractable, without status epilepticus; M19.90 Unspecified osteoarthritis, unspecified site; Z99.3 Dependence on wheelchair; Z93.1 Gastrostomy status; Z93.3 Colostomy status; Z68.27 Body mass index [BMI] 27.0-27.9, adult; E87.6 Hypokalemia
CPT/HCPCS: 11042; 36415; 36569; 71010; 80048; 80053; 81001; 82962; 83036; 84132; 84134; 84443; 85025; 85610; 85730; 87040; 87070; 87077; 87150; 87186; 87205; A9270-GY; C1751; C1894; J0295; J2540; J2543